=== PATIENT | male | born 1965 | race African-American/Black ===

== ENCOUNTER → 2016-09-20 | Outpatient (CLI) | payer OTHER ==
[~2016-09-20] MED LIST: FORTESTA10 MG/0.5 TP; LEVAQUIN 750MG750 M1 PO; TAMIFLU 75MG75 MG PO; TUSS PO; VIGAMOX 0.5% 3 M3 ML OD
== END ==
LOC: COL.RAD 08:29
DX: Q28.3 Other malformations of cerebral vessels (principal)
CPT/HCPCS: A9585

== ENCOUNTER → 2017-06-18 | Outpatient (CLI) | payer OTHER | LOC: COL.RAD 08:08 | DX: G50.0 Trigeminal neuralgia (principal); D18.02 Hemangioma of intracranial structures | CPT/HCPCS: A9585 ==

== ENCOUNTER 2018-07-13 10:19 | Emergency (ER) | payer OTHER ==
[~2018-07-13] VITALS: Ht 170.2 cm; Wt 113.6 kg
[2018-07-13 10:26] VITALS: BP 160/101; TEMP 98.7
[2018-07-13] MEDS ORDERED: UNABLE TO ASSESS (11:41)
[2018-07-13 12:48] VITALS: PULSE 82
== END 2018-07-13 12:49 | disposition home or self-care (01) ==
LOC: COL.ER 10:19
DX: S62.661A Nondisplaced fracture of distal phalanx of left index finger, initial encounter for closed fracture (principal); S60.122A Contusion of left index finger with damage to nail, initial encounter; E78.5 Hyperlipidemia, unspecified; I10 Essential (primary) hypertension; W23.0XXA Caught, crushed, jammed, or pinched between moving objects, initial encounter

== ENCOUNTER → 2018-12-16 | Outpatient (CLI) | payer OTHER ==
[~2018-12-16] VITALS: Ht 171.4 cm; Wt 108.4 kg
[~2018-12-16] MED LIST changes: +LIPITOR20 MG PO; +NORVASC 10MG10 MG PO; +UNABLE TO ASSESS; +ZESTRIL40 MG PO
[2018-12-16 09:12] VITALS: BP 130/56; PULSE 72
== END ==
LOC: LIGHT 08:55
DX: I10 Essential (primary) hypertension (principal); G47.33 Obstructive sleep apnea (adult) (pediatric); E78.5 Hyperlipidemia, unspecified; E66.9 Obesity, unspecified; Z68.36 Body mass index [BMI] 36.0-36.9, adult; Z71.3 Dietary counseling and surveillance
CPT/HCPCS: G0463

== ENCOUNTER → 2019-01-07 | Outpatient (CLI) | payer OTHER ==
[~2019-01-07] VITALS: Ht 171.4 cm; Wt 107.0 kg
[2019-01-07 09:55] VITALS: BP 104/76; PULSE 72
== END ==
LOC: LIGHT 09:46
DX: I10 Essential (primary) hypertension (principal); G47.33 Obstructive sleep apnea (adult) (pediatric); E78.5 Hyperlipidemia, unspecified; E66.9 Obesity, unspecified; Z68.36 Body mass index [BMI] 36.0-36.9, adult; Z71.3 Dietary counseling and surveillance
CPT/HCPCS: G0463

== ENCOUNTER → 2019-01-11 | Outpatient (CLI) | payer OTHER | LOC: LIGHT 10:00 | DX: I10 Essential (primary) hypertension (principal); G47.33 Obstructive sleep apnea (adult) (pediatric); E78.5 Hyperlipidemia, unspecified; E66.9 Obesity, unspecified; Z71.3 Dietary counseling and surveillance; Z68.36 Body mass index [BMI] 36.0-36.9, adult ==

== ENCOUNTER → 2019-01-11 | Outpatient (CLI) | payer OTHER | LOC: LIGHT 13:39 | DX: I10 Essential (primary) hypertension (principal); G47.33 Obstructive sleep apnea (adult) (pediatric); E78.5 Hyperlipidemia, unspecified; Z68.36 Body mass index [BMI] 36.0-36.9, adult; E66.9 Obesity, unspecified; Z71.3 Dietary counseling and surveillance ==

== ENCOUNTER → 2019-02-11 | Outpatient (CLI) | payer OTHER ==
[~2019-02-11] VITALS: Ht 171.4 cm; Wt 104.1 kg
[2019-02-11 15:08] VITALS: BP 140/86; PULSE 84
== END ==
LOC: LIGHT 13:19
DX: I10 Essential (primary) hypertension (principal); G47.33 Obstructive sleep apnea (adult) (pediatric); E78.5 Hyperlipidemia, unspecified; E66.9 Obesity, unspecified; Z68.35 Body mass index [BMI] 35.0-35.9, adult; Z71.3 Dietary counseling and surveillance
CPT/HCPCS: G0463

== ENCOUNTER 2019-09-28 08:06 | Day surgery (SDC) | payer OTHER ==
[~2019-09-28] VITALS: Ht 172.7 cm; Wt 111.5 kg
[2019-09-28] VITALS (12 sets, daily range): BP systolic 101–150; BP diastolic 76–900; PULSE 54–76
[~2019-09-28 08:06] MED LIST changes: +B COMPLEX #11 TAB PO; +VITAMIN C500 MG; +VITAMIN D31000 I1
[2019-09-28] MEDS ORDERED: PLAVIX 75MG TAB75 MG PO (08:53)
[2019-09-28] MEDS ORDERED: PRINIVIL40 MG PO (08:54)
[2019-09-28] MEDS ORDERED: TOPROL XL 25MG25 MG PO (08:58)
[2019-09-28 09:03] LABS: HEMATOCRIT 42.8 % (42.0-52.0); HEMOGLOBIN 14.5 g/dl (13.5-18.0); MEAN CELL VOLUME 88 fl (80.0-100.0); MEAN CORPUSCULAR HEMOGLOBIN 30 pg (27.0-31.0); MEAN CORPUSCULAR HGB CONC 34 g/dl (33.0-37.0); MEAN PLATELET VOLUME 9.9 fl (7.4-10.4); PLATELET COUNT 201 K/mm3 (130-400); RED BLOOD COUNT 4.84 M/mm3 (4.20-5.60)
[2019-09-28 09:09] LABS: INR 1.1 (0.8-3.0); PROTHROMBIN TIME 12.1 SECONDS (9.7-12.8)
[2019-09-28 09:12] LABS: PARTIAL THROMBOPLASTIN TIME 29.4 SECONDS (26.0-37.0)
[2019-09-28 09:50] LABS: CALCIUM 8.9 mg/dL (8.4-10.2); CREATININE, serum 1.38 (0.66-1.25); POTASSIUM 4.7 mmol/L (3.4-5.0)
--- NOTE | 2019-09-28 10:11 | NUR ---
SEE [facility] FOR ALL MEDICATION ADMINISTRATION TIMES AND INTA/POST SEDATION ASSESSMENT
--- NOTE | 2019-09-28 11:25 | NUR ---
Pt back from garage laborer, he is drowsy, with reg and unlaobred resps. TR band to rt wrist, cms intact distal, rt groin access site looks good without bleeding or hematoma, cms intact distal. pt and aware of poc.
--- NOTE | 2019-09-28 13:06 | NUR ---
PT doing well during his recovery, remains at bs. He has been able to eat and drink with no problem. rt groin and rt wrist sites remain free of bleeding and hematoma. denies needs at this time.
--- NOTE | 2019-09-28 16:35 | NUR ---
Air was released from TR band over about 45min beginning at 1330. Site looked good, bandaid applied. Hematoma formation at puncture site just proximal to bandaid was noted at 1515 just as pt was going to get up as his bedrest is complete. I held pressure for 8 minutes and massaged hematoma so that area was soft. we monitored the site for 30 minutes with no change. pt then was able to get up and ambulate to toilet, and then around department without any dizziness, or bleeding or hematoma in his groin. i reviewed dc instructions with pt and . they denied any questions at time of departure. IV was dc'd with cath intact, dressing was applied. pt was escorted to exit via wheelchair. cms intact to extremities at time of departure.
== END 2019-09-28 18:16 | disposition home or self-care (01) ==
LOC: COL.CAR 08:06
PROVIDERS: Internal Medicine Cardiovascular Disease
DX: I20.0 Unstable angina (principal); R94.39 Abnormal result of other cardiovascular function study; Z11.59 Encounter for screening for other viral diseases
CPT/HCPCS: J1644; J2250; J3010; Q9967

== ENCOUNTER → 2019-11-18 | Outpatient (CLI) | payer OTHER ==
[~2019-11-18] VITALS: Ht 171.4 cm; Wt 112.0 kg
[~2019-11-18] MED LIST changes: +PLAVIX 75MG TAB75 MG PO; +PRINIVIL40 MG PO; +SAXENDA6 MG/ML SQ; +TOPROL XL 25MG25 MG PO
[2019-11-18 15:13] VITALS: BP 126/70; PULSE 58
== END ==
LOC: LIGHT
DX: E66.8 Other obesity (principal); Z68.38 Body mass index [BMI] 38.0-38.9, adult; I10 Essential (primary) hypertension; E78.5 Hyperlipidemia, unspecified
CPT/HCPCS: G0463

== ENCOUNTER 2020-11-22 16:41 | Emergency (ER) | payer OTHER ==
[~2020-11-22] VITALS: Ht 170.2 cm; Wt 115.9 kg
[2020-11-22] MEDS ORDERED: MOTRIN 600600 MG/TAB PO (21:29)
[2020-11-22] MEDS ORDERED: FLEXERIL 1010 MG/TAB PO (21:29)
[2020-11-22] MEDS ORDERED: LIDODERM 5% PATC1 EA TP (21:29)
[2020-11-22 22:29] VITALS: BP 128/86; PULSE 88; TEMP 98.9
== END 2020-11-22 22:29 | disposition home or self-care (01) ==
LOC: COL.ER 16:41
DX: M54.5 Low back pain (principal); Z88.6 Allergy status to analgesic agent

== ENCOUNTER → 2021-07-18 | Outpatient (CLI) | payer OTHER ==
[~2021-07-18] MED LIST changes: +FLEXERIL 1010 MG/TAB PO; +LIDODERM 5% PATC1 EA TP; +MOTRIN 600600 MG/TAB PO
== END ==
LOC: COL.RAD 13:46
DX: G50.0 Trigeminal neuralgia (principal); E87.8 Other disorders of electrolyte and fluid balance, not elsewhere classified
CPT/HCPCS: A9575